=== PATIENT | male | born 1970 | race Caucasian/White ===

== ENCOUNTER 2024-02-14 10:51 | Inpatient (IN) | payer OTHER ==
[2024-02-14 11:45] VITALS: BMI 24.4
[2024-02-14] MEDS ORDERED: BENZONATATE 200 MG CAPSULE PO PRN (13:05)
[2024-02-14] MEDS ORDERED: POLYETHYLENE GLYCOL (HEALTHYLAX) 3350 17 GM PACKET PO PRN (13:05)
[2024-02-14] MEDS ORDERED: MAGNESIUM HYDROX 2400MG/30ML ORAL SUSPENSION 30 ML CUP PO PRN (13:05)
[2024-02-14] MEDS ORDERED: MAG HYDROX/AL HYDROX/SIMETH 30 ML UNIT-DOSE CUP PO PRN (13:05)
[2024-02-14] MEDS ORDERED: NALOXONE HCL 0.4 MG/ML VIAL IM PRN (13:05)
[2024-02-14] MEDS ORDERED: BENZOCAINE/MENTHOL (CHLORASEPTIC ) LOZENGE MM PRN (13:05)
[2024-02-14] MEDS ORDERED: BISMUTH SUBSALICYLATE 524 MG/30 ML PO PRN (13:05)
[2024-02-14] MEDS ORDERED: guaiFENesin 600 MG TABLET.ER (FP) PO PRN (13:05)
[2024-02-14] MEDS ORDERED: IBUPROFEN 400 MG TABLET (FP) PO PRN (13:05)
[2024-02-14] MEDS ORDERED: NICOTINE POLACRILEX 2 MG GUM BUC PRN (13:05)
[2024-02-14] MEDS ORDERED: ONDANSETRON *ODT* 4 MG TABLET SL PRN (13:05)
[2024-02-14] MEDS ORDERED: NALOXONE (NARCAN) HCL 4 MG/0.1 ML SPRAY NS PRN (13:05)
[2024-02-14] MEDS ORDERED: DICYCLOMINE HCL 10 MG CAPSULE PO PRN (13:05)
[2024-02-14] MEDS: diazePAM 5 MG TABLET PO PRN (14:04)
[2024-02-14] MEDS: diazePAM 5 MG TABLET PO SCH (17:12)
[2024-02-14] MEDS: MELATONIN 5 MG TABLETS PO SCH (22:15)
[2024-02-14] MEDS: THIAMINE 100 MG TABLET PO SCH (22:15)
[2024-02-15] MEDS: PRENATAL VITAMINS W/ FOLIC ACID TABLET (FP) PO SCH (10:18)
[2024-02-15] MEDS: NICOTINE 21 MG/24 HOURS TOPICAL PATCH TD SCH (10:20)
[2024-02-15 10:21] LABS: HEMATOCRIT 37.5 % (35.4-49); HEMOGLOBIN 12.5 GM/dL (11.7-16.9); MCH 32.3 pg (25.7-33.7); MCHC 33.4 g/dl (32.0-35.9); MEAN CELL VOLUME 96.9 fl (80-96); MEAN PLT VOLUME 8.6 fl (7.5-11.1); PLATELET COUNT 190 10^3/uL (134-434); RBC 3.87 M/mm3 (4.00-5.60); RDW 13.6 % (11.9-15.9); WHITE BLOOD COUNT 4.2 K/mm3 (4.0-10.0)
[2024-02-15 10:25] LABS: POTASSIUM 4.2 mmol/L (3.5-5.1)
[2024-02-15 10:31] LABS: ALBUMIN 3.4 g/dl (3.4-5.0)
[2024-02-15 10:32] LABS: BLOOD UREA NITROGEN 16.7 mg/dL (7-18); CREATININE 0.8 mg/dL (0.55-1.3)
[2024-02-15 10:34] LABS: TOT PROT 6.5 g/dl (6.4-8.2)
[2024-02-15] MEDS: hydrOXYzine PAMOATE 25 MG CAPSULE (FP) PO PRN (10:35)
[2024-02-15] MEDS: LOPERAMIDE HCL 2 MG CAPSULE PO PRN (10:35)
[2024-02-15 10:59] LABS: BILIRUBIN,TOTAL 0.8 mg/dL (0.2-1)
[2024-02-15] MEDS: METHOCARBAMOL 500 MG TABLET PO PRN (14:51)
[2024-02-15] MEDS: SUVOREXANT 10 MG TABLET PO PRN (22:53)
[2024-02-16] MEDS: diazePAM 5 MG TABLET PO SCH (05:51)
[2024-02-16] MEDS: ACETAMINOPHEN 325 MG TABLET (FP) PO PRN (22:20)
[2024-02-17] MEDS: diazePAM 5 MG TABLET PO SCH (05:45)
[2024-02-17] MEDS: cloNIDine HCL 0.1 MG TABLET PO PRN (11:51)
[2024-02-18] MEDS: IBUPROFEN 600 MG TABLET (FP) PO PRN (01:04)
[2024-02-18] MEDS: diazePAM 5 MG TABLET PO ONE ×2 (05:45→14:53)
[2024-02-18] MEDS: cloNIDine HCL 0.1 MG TABLET PO PRN (11:55)
[2024-02-18] MEDS: SUVOREXANT 10 MG TABLET PO PRN (21:47)
[2024-02-19 07:01] VITALS: RESP 16
[2024-02-19 09:15] VITALS: BP 124/77; PULSE 90; TEMP 96.8
[2024-02-19] MEDS: cloNIDine HCL 0.1 MG TABLET PO PRN (10:30)
[2024-02-19] MEDS: diazePAM 5 MG TABLET PO PRN (10:30)
== END 2024-02-19 11:50 | disposition other institution (70) | DRG 774 ==
LOC: YASAS 10:51 → Y6N 13:26
PROVIDERS: ADMIT Allergy & Immunology; ATTEND Surgery
PROC: HZ2ZZZZ Detoxification Services for Substance Abuse Treatment (ICD-10-PCS; principal; 2024-02-14)
DX: F10.230 Alcohol dependence with withdrawal, uncomplicated (principal); F13.230 Sedative, hypnotic or anxiolytic dependence with withdrawal, uncomplicated; F14.20 Cocaine dependence, uncomplicated; F17.210 Nicotine dependence, cigarettes, uncomplicated; F31.9 Bipolar disorder, unspecified; F19.282 Other psychoactive substance dependence with psychoactive substance-induced sleep disorder; F19.280 Other psychoactive substance dependence with psychoactive substance-induced anxiety disorder; F19.24 Other psychoactive substance dependence with psychoactive substance-induced mood disorder; J44.9 Chronic obstructive pulmonary disease, unspecified; Z62.810 Personal history of physical and sexual abuse in childhood; Z59.00 Homelessness unspecified
CPT/HCPCS: 36415; 80053; 80305; 80307; 85027; 86780; 87811; 93005; 93010

== ENCOUNTER 2024-02-19 11:47 | Inpatient (IN) | payer OTHER ==
[~2024-02-19 11:47] MED LIST: BENZOCAINE/MENTHOL (CHLORASEPTIC ) LOZENGE MM PRN; BENZONATATE 200 MG CAPSULE PO PRN; IBUPROFEN 400 MG TABLET (FP) PO PRN; NICOTINE POLACRILEX 4 MG GUM BUC PRN; NICOTINE POLACRILEX 4 MG LOZENGE BC PRN; POLYETHYLENE GLYCOL (HEALTHYLAX) 3350 17 GM PACKET PO PRN; guaiFENesin 600 MG TABLET.ER (FP) PO PRN
[2024-02-19] MEDS: IBUPROFEN 600 MG TABLET (FP) PO PRN (12:35)
[2024-02-19] MEDS: hydrOXYzine PAMOATE 25 MG CAPSULE (FP) PO PRN (12:36)
[2024-02-19] MEDS: LOPERAMIDE HCL 2 MG CAPSULE PO PRN (12:36)
[2024-02-19] MEDS: METHOCARBAMOL 500 MG TABLET PO PRN (17:44)
[2024-02-19] MEDS: THIAMINE 100 MG TABLET PO SCH (21:55)
[2024-02-19] MEDS: SUVOREXANT 10 MG TABLET PO PRN (21:56)
[2024-02-19] MEDS ORDERED: MELATONIN 5 MG TABLETS PO SCH (22:00)
[2024-02-20] MEDS: PRENATAL VITAMINS W/ FOLIC ACID TABLET (FP) PO SCH (09:12)
[2024-02-20] MEDS: NICOTINE 21 MG/24 HOURS TOPICAL PATCH TD SCH (09:14)
[2024-02-20] MEDS ORDERED: propRANOLol HCL 10 MG TABLET PO PRN (10:28)
[2024-02-20] MEDS: GABAPENTIN 100 MG CAPSULE PO ONE (11:38)
[2024-02-20] MEDS: hydrOXYzine PAMOATE 50 MG CAPSULE (FP) PO ONE (11:38)
[2024-02-20] MEDS: GABAPENTIN 100 MG CAPSULE PO SCH (13:45)
[2024-02-20] MEDS: hydrOXYzine PAMOATE 50 MG CAPSULE (FP) PO PRN (13:46)
[2024-02-20] MEDS: ACETAMINOPHEN 325 MG TABLET (FP) PO PRN (13:46)
[2024-02-20] MEDS: propRANOLol HCL 10 MG TABLET PO PRN (16:54)
[2024-02-20] MEDS: MAG HYDROX/AL HYDROX/SIMETH 30 ML UNIT-DOSE CUP PO PRN (21:28)
[2024-02-20] MEDS: MAGNESIUM HYDROX 2400MG/30ML ORAL SUSPENSION 30 ML CUP PO PRN (22:22)
[2024-02-21] MEDS: GABAPENTIN 300 MG CAPSULE PO SCH (21:16)
[2024-02-24 16:06] VITALS: BP 141/90; PULSE 91; RESP 17; TEMP 98
== END 2024-02-24 16:06 | disposition home or self-care (01) | DRG 772 ==
LOC: YASAS 11:47 → Y3NR 11:49 → Y3W 02-20 09:57
PROVIDERS: ADMIT Psychiatry & Neurology Pain Medicine; ATTEND Psychiatry & Neurology Pain Medicine
PROC: HZ42ZZZ Group Counseling for Substance Abuse Treatment, Cognitive-Behavioral (ICD-10-PCS; principal; 2024-02-19)
DX: F10.20 Alcohol dependence, uncomplicated (principal); F13.20 Sedative, hypnotic or anxiolytic dependence, uncomplicated; F17.210 Nicotine dependence, cigarettes, uncomplicated; F19.282 Other psychoactive substance dependence with psychoactive substance-induced sleep disorder; F19.280 Other psychoactive substance dependence with psychoactive substance-induced anxiety disorder; Z59.00 Homelessness unspecified

== ENCOUNTER 2024-02-29 18:53 | Inpatient (IN) | payer OTHER ==
[2024-02-29 20:47] VITALS: BMI 22.9
[2024-02-29] MEDS ORDERED: NICOTINE POLACRILEX 2 MG LOZENGE BC PRN (21:47)
[2024-02-29] MEDS ORDERED: NALOXONE (NARCAN) HCL 4 MG/0.1 ML SPRAY NS PRN (21:47)
[2024-02-29] MEDS ORDERED: BENZOCAINE/MENTHOL (CHLORASEPTIC ) LOZENGE MM PRN (21:47)
[2024-02-29] MEDS ORDERED: BISMUTH SUBSALICYLATE 524 MG/30 ML PO PRN (21:47)
[2024-02-29] MEDS ORDERED: BENZONATATE 200 MG CAPSULE PO PRN (21:47)
[2024-02-29] MEDS ORDERED: guaiFENesin 600 MG TABLET.ER (FP) PO PRN (21:47)
[2024-02-29] MEDS ORDERED: IBUPROFEN 400 MG TABLET (FP) PO PRN (21:47)
[2024-02-29] MEDS ORDERED: DICYCLOMINE HCL 10 MG CAPSULE PO PRN (21:47)
[2024-02-29] MEDS ORDERED: METHOCARBAMOL 500 MG TABLET PO PRN (21:47)
[2024-02-29] MEDS ORDERED: NICOTINE POLACRILEX 2 MG GUM BUC PRN (21:47)
[2024-02-29] MEDS ORDERED: ONDANSETRON *ODT* 4 MG TABLET SL PRN (21:47)
[2024-02-29] MEDS ORDERED: POLYETHYLENE GLYCOL (HEALTHYLAX) 3350 17 GM PACKET PO PRN (21:47)
[2024-02-29] MEDS ORDERED: MAG HYDROX/AL HYDROX/SIMETH 30 ML UNIT-DOSE CUP PO PRN (21:47)
[2024-02-29] MEDS ORDERED: MAGNESIUM HYDROX 2400MG/30ML ORAL SUSPENSION 30 ML CUP PO PRN (21:47)
[2024-02-29] MEDS ORDERED: P-EPHED 60MG/TRIPROLIDI 2.5MG TABLET PO PRN (22:34)
[2024-02-29] MEDS ORDERED: diazePAM 5 MG TABLET ONE (22:54)
[2024-02-29] MEDS: THIAMINE 100 MG TABLET PO SCH (22:57)
[2024-02-29] MEDS: diazePAM 5 MG TABLET PO SCH (22:58)
[2024-02-29] MEDS: NALOXONE (NYS OPIOID OVERDOSE PROGRAM) 4 MG/0.1 ML SPRAY NS ONE (23:32)
[2024-02-29] MEDS: propRANOLol HCL 10 MG TABLET PO ONE (23:37)
[2024-02-29] MEDS: MELATONIN 5 MG TABLETS PO SCH (23:42)
[2024-03-01] MEDS: diazePAM 5 MG TABLET PO PRN (02:10)
[2024-03-01] MEDS: ALBUTEROL SO4 HFA INHALER IH PRN (02:11)
[2024-03-01] MEDS: IBUPROFEN 600 MG TABLET (FP) PO PRN (02:13)
[2024-03-01] MEDS: hydrOXYzine PAMOATE 25 MG CAPSULE (FP) PO PRN ×2 (05:33→18:44)
[2024-03-01] MEDS: PRENATAL VITAMINS W/ FOLIC ACID TABLET (FP) PO SCH (10:29)
[2024-03-01] MEDS: LOPERAMIDE HCL 2 MG CAPSULE PO PRN (12:41)
[2024-03-01] MEDS: propRANOLol HCL 10 MG TABLET PO PRN (12:43)
[2024-03-01] MEDS: GABAPENTIN 100 MG CAPSULE PO SCH (13:12)
[2024-03-01] MEDS: ACETAMINOPHEN 325 MG TABLET (FP) PO PRN (17:15)
[2024-03-01] MEDS: SUVOREXANT 10 MG TABLET PO PRN (22:05)
[2024-03-02] MEDS: diazePAM 5 MG TABLET PO SCH (05:35)
[2024-03-03] MEDS: diazePAM 5 MG TABLET PO SCH (06:31)
[2024-03-03 09:43] VITALS: BP 119/60; PULSE 70; RESP 19; TEMP 97.3
[2024-03-03 12:02] LABS: BASO % 0.8 % (0-2.0); HEMATOCRIT 39.6 % (35.4-49); HEMOGLOBIN 13.1 GM/dL (11.7-16.9); LYMPH % 24.4 % (8-40); MCH 31.7 pg (25.7-33.7); MCHC 33.2 g/dl (32.0-35.9); MEAN CELL VOLUME 95.5 fl (80-96); MEAN PLT VOLUME 8.4 fl (7.5-11.1); MONO % 12.3 % (3.8-10.2); NEUT % 59.5 % (42.8-82.8); PLATELET COUNT 197 10^3/uL (134-434); RBC 4.14 M/mm3 (4.00-5.60); RDW 14.1 % (11.9-15.9); WHITE BLOOD COUNT 3.6 K/mm3 (4.0-10.0)
[2024-03-03 12:14] LABS: POTASSIUM 4.3 mmol/L (3.5-5.1)
[2024-03-03 12:19] LABS: CALCIUM 9.4 mg/dL (8.5-10.1)
[2024-03-03 12:22] LABS: CREATININE 0.7 mg/dL (0.55-1.3)
[2024-03-03 12:23] LABS: BLOOD UREA NITROGEN 10.6 mg/dL (7-18)
[2024-03-04] MEDS ORDERED: diazePAM 5 MG TABLET PO ONE (06:00)
== END 2024-03-03 12:18 | disposition home or self-care (01) | DRG 774 ==
LOC: YASAS 18:53 → Y3N 22:59
PROVIDERS: ADMIT Allergy & Immunology; ATTEND Surgery
PROC: HZ2ZZZZ Detoxification Services for Substance Abuse Treatment (ICD-10-PCS; principal; 2024-02-29)
DX: F10.230 Alcohol dependence with withdrawal, uncomplicated (principal); F14.20 Cocaine dependence, uncomplicated; F13.20 Sedative, hypnotic or anxiolytic dependence, uncomplicated; F17.210 Nicotine dependence, cigarettes, uncomplicated; F19.280 Other psychoactive substance dependence with psychoactive substance-induced anxiety disorder; F19.282 Other psychoactive substance dependence with psychoactive substance-induced sleep disorder; F31.9 Bipolar disorder, unspecified; F41.9 Anxiety disorder, unspecified; J44.9 Chronic obstructive pulmonary disease, unspecified; J45.20 Mild intermittent asthma, uncomplicated; Z56.0 Unemployment, unspecified; Z59.00 Homelessness unspecified
CPT/HCPCS: 36415; 80048; 80305; 80307; 82962; 85025; 86780; 93005; 93010

== ENCOUNTER 2024-03-08 04:08 | Inpatient (IN) | payer OTHER ==
[2024-03-08 05:24] VITALS: RESP 18; BMI 25.5
[2024-03-08] MEDS ORDERED: MAGNESIUM HYDROX 2400MG/30ML ORAL SUSPENSION 30 ML CUP PO PRN (05:46)
[2024-03-08] MEDS ORDERED: ACETAMINOPHEN 325 MG TABLET (FP) PO PRN (05:46)
[2024-03-08] MEDS ORDERED: ONDANSETRON *ODT* 4 MG TABLET SL PRN (05:46)
[2024-03-08] MEDS ORDERED: NALOXONE (NYS OPIOID OVERDOSE PROGRAM) 4 MG/0.1 ML SPRAY NS PRN (05:46)
[2024-03-08] MEDS ORDERED: POLYETHYLENE GLYCOL (HEALTHYLAX) 3350 17 GM PACKET PO PRN (05:46)
[2024-03-08] MEDS ORDERED: DICYCLOMINE HCL 10 MG CAPSULE PO PRN (05:46)
[2024-03-08] MEDS ORDERED: MAG HYDROX/AL HYDROX/SIMETH 30 ML UNIT-DOSE CUP PO PRN (05:46)
[2024-03-08] MEDS ORDERED: NALOXONE (NARCAN) HCL 4 MG/0.1 ML SPRAY NS PRN (05:46)
[2024-03-08] MEDS ORDERED: guaiFENesin 600 MG TABLET.ER (FP) PO PRN (05:46)
[2024-03-08] MEDS ORDERED: IBUPROFEN 400 MG TABLET (FP) PO PRN (05:46)
[2024-03-08] MEDS ORDERED: BENZOCAINE/MENTHOL (CHLORASEPTIC ) LOZENGE MM PRN (05:46)
[2024-03-08] MEDS ORDERED: BENZONATATE 200 MG CAPSULE PO PRN (05:46)
[2024-03-08] MEDS ORDERED: NICOTINE POLACRILEX 2 MG GUM BUC PRN (05:46)
[2024-03-08] MEDS ORDERED: diazePAM 5 MG TABLET PO PRN (07:01)
[2024-03-08] MEDS: NICOTINE 21 MG/24 HOURS TOPICAL PATCH TD SCH (09:25)
[2024-03-08] MEDS ORDERED: LOPERAMIDE HCL 2 MG CAPSULE ONE (09:42)
[2024-03-08] MEDS ORDERED: IBUPROFEN 600 MG TABLET (FP) PO ONE (09:42)
[2024-03-08] MEDS ORDERED: PRENATAL VITAMINS W/ FOLIC ACID TABLET (FP) PO ONE (09:42)
[2024-03-08] MEDS: IBUPROFEN 600 MG TABLET (FP) PO PRN (09:45)
[2024-03-08] MEDS: LOPERAMIDE HCL 2 MG CAPSULE PO PRN (09:45)
[2024-03-08] MEDS: PRENATAL VITAMINS W/ FOLIC ACID TABLET (FP) PO SCH (09:45)
[2024-03-08] MEDS: diazePAM 5 MG TABLET PO SCH (10:15)
[2024-03-08] MEDS: hydrOXYzine PAMOATE 25 MG CAPSULE (FP) PO PRN (10:16)
[2024-03-08] MEDS: METHOCARBAMOL 500 MG TABLET PO PRN (10:17)
[2024-03-08] MEDS: MELATONIN 5 MG TABLETS PO SCH (22:43)
[2024-03-08] MEDS: THIAMINE 100 MG TABLET PO SCH (22:43)
[2024-03-09 06:20] VITALS: TEMP 97.6
[2024-03-09] MEDS: BISMUTH SUBSALICYLATE 524 MG/30 ML PO PRN (08:45)
[2024-03-09 09:10] VITALS: BP 125/87; PULSE 87
[2024-03-10] MEDS ORDERED: diazePAM 5 MG TABLET PO SCH (06:00)
[2024-03-11] MEDS ORDERED: diazePAM 5 MG TABLET PO SCH (06:00)
[2024-03-12] MEDS ORDERED: diazePAM 5 MG TABLET PO ONE (06:00)
== END 2024-03-09 10:56 | disposition left against medical advice (07) | DRG 774 ==
LOC: YASAS 04:08 → Y3N 08:40
PROVIDERS: ADMIT Allergy & Immunology; ATTEND Allergy & Immunology
PROC: HZ2ZZZZ Detoxification Services for Substance Abuse Treatment (ICD-10-PCS; principal; 2024-03-08)
DX: F10.230 Alcohol dependence with withdrawal, uncomplicated (principal); F13.230 Sedative, hypnotic or anxiolytic dependence with withdrawal, uncomplicated; F14.20 Cocaine dependence, uncomplicated; F17.210 Nicotine dependence, cigarettes, uncomplicated; F31.9 Bipolar disorder, unspecified; F41.9 Anxiety disorder, unspecified; J45.20 Mild intermittent asthma, uncomplicated; J41.0 Simple chronic bronchitis; Z59.00 Homelessness unspecified
CPT/HCPCS: 36415; 80305; 80307; 93005; 93010

== ENCOUNTER 2024-03-10 22:48 | Inpatient (IN) | payer OTHER ==
[2024-03-10 23:44] VITALS: BMI 26.9
[2024-03-11] MEDS ORDERED: NICOTINE POLACRILEX 2 MG GUM BUC PRN (00:29)
[2024-03-11] MEDS ORDERED: NALOXONE (NYS OPIOID OVERDOSE PROGRAM) 4 MG/0.1 ML SPRAY NS PRN (00:29)
[2024-03-11] MEDS ORDERED: MAGNESIUM HYDROX 2400MG/30ML ORAL SUSPENSION 30 ML CUP PO PRN (00:29)
[2024-03-11] MEDS ORDERED: BENZONATATE 200 MG CAPSULE PO PRN (00:29)
[2024-03-11] MEDS ORDERED: BENZOCAINE/MENTHOL (CHLORASEPTIC ) LOZENGE MM PRN (00:29)
[2024-03-11] MEDS ORDERED: POLYETHYLENE GLYCOL (HEALTHYLAX) 3350 17 GM PACKET PO PRN (00:29)
[2024-03-11] MEDS ORDERED: METHOCARBAMOL 500 MG TABLET PO PRN (00:29)
[2024-03-11] MEDS ORDERED: BISMUTH SUBSALICYLATE 524 MG/30 ML PO PRN (00:29)
[2024-03-11] MEDS ORDERED: NALOXONE (NARCAN) HCL 4 MG/0.1 ML SPRAY NS PRN (00:29)
[2024-03-11] MEDS ORDERED: guaiFENesin 600 MG TABLET.ER (FP) PO PRN (00:29)
[2024-03-11] MEDS ORDERED: ONDANSETRON *ODT* 4 MG TABLET SL PRN (00:29)
[2024-03-11] MEDS ORDERED: MAG HYDROX/AL HYDROX/SIMETH 30 ML UNIT-DOSE CUP PO PRN (00:29)
[2024-03-11] MEDS ORDERED: IBUPROFEN 400 MG TABLET (FP) PO PRN (00:29)
[2024-03-11] MEDS: diazePAM 5 MG TABLET PO SCH (05:40)
[2024-03-11] MEDS: ACETAMINOPHEN 325 MG TABLET (FP) PO PRN (06:11)
[2024-03-11] MEDS ORDERED: ALBUTEROL SO4 HFA INHALER IH PRN (10:25)
[2024-03-11] MEDS: hydrOXYzine PAMOATE 25 MG CAPSULE (FP) PO PRN (10:26)
[2024-03-11] MEDS: PRENATAL VITAMINS W/ FOLIC ACID TABLET (FP) PO SCH (10:26)
[2024-03-11] MEDS: NICOTINE 21 MG/24 HOURS TOPICAL PATCH TD SCH (10:27)
[2024-03-11] MEDS ORDERED: hydrOXYzine PAMOATE 50 MG CAPSULE (FP) PO PRN (10:34)
[2024-03-11] MEDS: propRANOLol HCL 10 MG TABLET PO SCH (10:57)
[2024-03-11] MEDS: DICYCLOMINE HCL 10 MG CAPSULE PO PRN (10:57)
[2024-03-11] MEDS: diazePAM 5 MG TABLET PO PRN (14:30)
[2024-03-11] MEDS: GABAPENTIN 100 MG CAPSULE PO SCH (14:31)
[2024-03-11] MEDS: SUVOREXANT 10 MG TABLET PO PRN (22:00)
[2024-03-11] MEDS ORDERED: MELATONIN 5 MG TABLETS PO SCH (22:00)
[2024-03-11] MEDS: THIAMINE 100 MG TABLET PO SCH (22:01)
[2024-03-12] MEDS: diazePAM 5 MG TABLET PO SCH (05:19)
[2024-03-12 09:20] VITALS: BP 134/85; PULSE 78; RESP 18; TEMP 96.9
[2024-03-12] MEDS: IBUPROFEN 600 MG TABLET (FP) PO PRN (09:40)
[2024-03-12] MEDS: LOPERAMIDE HCL 2 MG CAPSULE PO PRN (09:41)
[2024-03-12 11:28] LABS: POTASSIUM 4.4 mmol/L (3.5-5.1)
[2024-03-12 11:30] LABS: HEMATOCRIT 33.2 % (35.4-49); MCH 31.5 pg (25.7-33.7); MCHC 33.2 g/dl (32.0-35.9); MEAN PLT VOLUME 9.5 fl (7.5-11.1); PLATELET COUNT 194 10^3/uL (134-434); RBC 3.49 M/mm3 (4.00-5.60); WHITE BLOOD COUNT 3.2 K/mm3 (4.0-10.0)
[2024-03-12 11:33] LABS: CALCIUM 8.8 mg/dL (8.5-10.1)
[2024-03-12 11:34] LABS: ALBUMIN 3.1 g/dl (3.4-5.0); BLOOD UREA NITROGEN 15.5 mg/dL (7-18)
[2024-03-12 11:37] LABS: CREATININE 0.7 mg/dL (0.55-1.3)
[2024-03-12 11:38] LABS: BILIRUBIN,TOTAL 0.2 mg/dL (0.2-1); TOT PROT 6.1 g/dl (6.4-8.2)
[2024-03-13] MEDS ORDERED: diazePAM 5 MG TABLET PO SCH (06:00)
[2024-03-14] MEDS ORDERED: diazePAM 5 MG TABLET PO ONE (06:00)
== END 2024-03-12 10:10 | disposition left against medical advice (07) | DRG 770 ==
LOC: YASAS 22:48 → Y3N 03-11 00:54
PROVIDERS: ADMIT Allergy & Immunology; ATTEND Surgery
PROC: HZ2ZZZZ Detoxification Services for Substance Abuse Treatment (ICD-10-PCS; principal; 2024-03-11)
DX: F10.230 Alcohol dependence with withdrawal, uncomplicated (principal); F13.230 Sedative, hypnotic or anxiolytic dependence with withdrawal, uncomplicated; F14.20 Cocaine dependence, uncomplicated; F17.210 Nicotine dependence, cigarettes, uncomplicated; F31.9 Bipolar disorder, unspecified; F19.280 Other psychoactive substance dependence with psychoactive substance-induced anxiety disorder; F19.282 Other psychoactive substance dependence with psychoactive substance-induced sleep disorder; F41.9 Anxiety disorder, unspecified; J44.1 Chronic obstructive pulmonary disease with (acute) exacerbation; J45.20 Mild intermittent asthma, uncomplicated; Z56.0 Unemployment, unspecified; Z59.00 Homelessness unspecified
CPT/HCPCS: 36415; 80053; 80305; 80307; 85027; 86780; 99283-25